=== PATIENT | male | born 1940 | race Caucasian/White ===

== ENCOUNTER 2017-04-11 21:23 | Inpatient (IN) | payer OTHER, MEDICARE ==
[~2017-04-11] VITALS: Ht 172.7 cm; Wt 89.2 kg
[~2017-04-11 21:23] MED LIST: ASPCH81 PO; CIME200T4 PO; CZR50 PO; DMD20 PO; INSDGI SC; LEVO75TA PO; LYR/50 PO; NITR0.4S UT; NVLGI SC; NXM/40 PO; PRAS1TAB6 PO; SILD100T PO
[2017-04-11 21:57] LABS: HEMATOCRIT 43.2 % (42-52); MEAN CELL VOLUME 92.3 fL (80-100); MEAN CORPUSCULAR HEMOGLOBIN 32.5 pg (25-34); MEAN CORPUSCULAR HGB CONC 35.2 g/dl (32-36); MEAN PLATELET VOLUME 11.4 fL (7.4-10.4); PLATELET COUNT 142 K/uL (130-400); RED BLOOD COUNT 4.68 M/uL (4.7-6.1); WHITE BLOOD COUNT 5.92 K/uL (4.8-10.8)
[2017-04-11] MEDS ORDERED: ASPIRIN 81 MG CHEW PO STA (22:04)
[2017-04-11 22:11] LABS: INR 0.9 (0.9-1.1); PROTHROMBIN TIME (PATIENT) 10.1 SECONDS (9.0-12.0)
[2017-04-11] MEDS ORDERED: NITROGLYCERIN OINT 2% 1GM PACKET EXT ONE (22:15)
[2017-04-11 22:17] LABS: ALT/SGPT 36 U/L (12-78); CALCIUM 8.5 mg/dl (8.5-10.1); CHLORIDE 105 mmol/L (98-107); SODIUM 141 mmol/L (136-145)
[2017-04-11 22:18] LABS: ALB/GLOB RATIO 1.2 (0.9-2); ALKALINE PHOSPHATASE 55 U/L (45-117); BLOOD UREA NITROGEN 25 mg/dl (7-18); BUN/CREATININE RATIO 16.6 (10-20); CARBON DIOXIDE 30 mmol/L (21-32); GLUCOSE 207 mg/dl (70-99); POTASSIUM 3.2 mmol/L (3.5-5.1)
[2017-04-11] MEDS ORDERED: INSDGI SC (22:22)
[2017-04-11] MEDS ORDERED: ASPI81CH2 PO (22:22)
[2017-04-11 22:24] LABS: AST/SGOT 31 U/L (15-37)
[2017-04-11] MEDS ORDERED: POTASSIUM CHLORIDE 10 MEQ TABCR PO STA (22:25)
[2017-04-11] MEDS ORDERED: CARV3.122 PO (22:26)
[2017-04-11] MEDS ORDERED: TORS20TA2 PO (22:26)
[2017-04-11] MEDS ORDERED: CINN500C13 PO (22:26)
[2017-04-11] MEDS ORDERED: CHOL100010 PO (22:26)
[2017-04-11] MEDS ORDERED: POTA99TA PO (22:26)
--- NOTE | 2017-04-11 22:27 | DIAGNOSTIC IMAGING REPORT ---
CHEST ONE VIEW PORTABLE CLINICAL HISTORY: 76 years-old Male presenting with A09B Chest Pain. TECHNIQUE: Portable upright AP view of the chest was obtained. COMPARISON: 07/12/2012. FINDINGS: Mildly tortuous descending thoracic aorta. Cardiac silhouette normal in size. Lungs and pleural spaces clear. Degenerative changes of the thoracic spine. Upper abdomen normal. IMPRESSION: 1. No acute cardiopulmonary disease. Electronically signed by: Franki Muñoz M.D. 04/11/2017 10:25 PM Dictated Date/Time: 04/11/2017 10:25 PM
[2017-04-11] MEDS ORDERED: ACETAMINOPHEN 325 MG TAB PO PRN (23:15)
[2017-04-11] MEDS ORDERED: MAGNESIUM HYDROXIDE SUSP 30 ML UDC PO PRN (23:15)
[2017-04-11] MEDS ORDERED: ALUMINUM/MAGNESIUM/SIMETH (MAALOX MAX) 30 ML UDC PO PRN (23:15)
[2017-04-11] MEDS ORDERED: POLYETHYLENE (MIRALAX) 17 GM PACK PO PRN (23:15)
--- NOTE | 2017-04-11 23:26 | EMERGENCY ROOM VISIT NOTE ---
History Report prepared by Abisaiibalberto: Cristina Paiz Under the Supervision of: Dr. Pardeep Lenz M.D. First contact with patient: 21:58 Chief Complaint: CHEST PAIN Stated Complaint: CHEST PAIN Nursing Triage Summary: Triage Notes: Pt complains of chest pain since dinner time. Pt took NTG with some relief. Pt has history of 5 stents. +SOB History of Present Illness The patient is a 76 year old male who presents to the Emergency Room with complaints of persistent chest pain that started around 1800 this evening. He reports he was walking from a restaurant to his car after eating dinner when his pain started. He rates his discomfort as a 1/10 and states Nitroglycerin provided good pain relief. The pain did not radiate anywhere and the patient denies any diaphoresis. He admits to some minimal shortness of breath. The patient has a history of heart disease and has [address] He used to live in the area and followed with [facility], but moved to [place] approximately 2 years ago. He takes daily Aspirin and Effient and has been taking them as prescribed. Pt denies LOC, headache, fevers, chills, diaphoresis, visual changes, neck pain, nausea, vomiting, abdominal pain, back pain, melena, hematochezia, urinary symptoms, numbness, weakness, lymphadenopathy, rash, or other complaints. Source of History: patient Onset: 1800 today Position: chest Symptom Intensity: 1/10 Timing: other (persistent) Modifying Factors (Relieving): other (Nitrogylcerin) Associated Symptoms: + SOB Review of Systems See HPI for pertinent positives and negatives. A total of ten systems were reviewed and were otherwise negative. Past Medical & Surgical Medical Problems: (1) [address] (2) angioplasty (3) Appendectomy (4) Benign hypertension (5) Diabetes mellitus (6) Exertional chest pain (7) Heart disease (8) Kidney stone Social History Smoking Status: Former Smoker Alcohol Use: occasionally Drug Use: none Marital Status: Housing Status: lives with significant other Occupation Status: retired Current/Historical Medications Scheduled Aspirin (Aspirin), 81 MG PO DAILY Carvedilol (Coreg), 3.125 MG PO BID Cholecalciferol (Vitamin D), 5,000 INTER.UNIT PO DAILY Cinnamon (Cinnamon Extract), 500 MG PO DAILY Esomeprazole Magnesium (Nexium), 40 MG PO DAILY Insulin Aspart (Novolog), 8-10 UNITS SC AC Insulin Glargine (Lantus), 22 UNITS SC QPM Levothyroxine Sodium (Synthroid), 75 MCG PO DAILY Losartan Potassium (Cozaar *), 100 MG PO DAILY Nitroglycerin (Nitrostat), 0.4 MG UT PRN Potassium (Potassium), 198 MG PO DAILY Prasugrel Hcl (Effient), 5 MG PO Q2D Pregabalin (Lyrica), 50 MG PO QPM Sildenafil Citrate (Viagra), 100 MG PO PRN Torsemide (Demadex), 20 MG PO DAILY Scheduled PRN Cimetidine (Cimetidine), 400 MG PO Allergies Coded Allergies: SWATI Inhibitors (Verified Adverse Reaction, Intermediate, DRUG SENSITIVITY , 04/11/17) Statins (Verified Adverse Reaction, Intermediate, DRUG SENSITIVITY, ) Garlic (Verified Adverse Reaction, Unknown, MILD, 04/11/17) Onion (Verified Adverse Reaction, Unknown, MILD, 04/11/17) Uncoded Allergies: ISOSORBIDE (Allergy, Unknown, CHOKING, 04/11/17) Physical Exam Vital Signs Date Time Temp Pulse Resp B/P (MAP) Pulse Ox O2 Delivery O2 Flow Rate FiO2 04/11/17 22:31 124/70 04/11/17 22:23 74 22 96 Room Air 04/11/17 22:18 73 20 146/75 96 Room Air 04/11/17 22:01 146/75 04/11/17 21:53 63 18 95 04/11/17 21:49 94 Room Air 04/11/17 21:49 36.7 59 20 146/85 94 Room Air 04/11/17 21:46 59 04/11/17 21:45 57 20 146/85 94 Room Air 04/11/17 21:44 94 Room Air 04/11/17 21:35 146/85 04/11/17 21:28 36.7 72 20 147/77 94 Room Air Physical Exam GENERAL: Awake, alert, well-appearing, in no distress HENT: Normocephalic, atraumatic. Oropharynx unremarkable. EYES: Normal conjunctiva. Sclera non-icteric. NECK: Supple. No nuchal rigidity. FROM. No JVD. RESPIRATORY: Clear to auscultation. CARDIAC: Bradycardic heart rate, normal rhythm. Extremities warm and well perfused. Pulses equal. ABDOMEN: Soft, non-distended. No tenderness to palpation. No rebound or guarding. No masses. RECTAL: Deferred. MUSCULOSKELETAL: Chest examination reveals no tenderness. The back is symmetrical on inspection without obvious abnormality. There is no CVA tenderness to palpation. No joint edema. LOWER EXTREMITIES: Calves are equal size bilaterally and non-tender. Trace lower extremity edema. No discoloration. NEURO: Normal sensorium. No sensory or motor deficits noted. SKIN: No rash or jaundice noted. Medical Decision & Procedures ER Provider Diagnostic Interpretation: Radiology results as stated below per my review and radiologist interpretation: CHEST ONE VIEW PORTABLE CLINICAL HISTORY: 76 years-old Male presenting with A09B Chest Pain. TECHNIQUE: Portable upright AP view of the chest was obtained. COMPARISON: 07/12/2012. FINDINGS: Mildly tortuous descending thoracic aorta. Cardiac silhouette normal in size. Lungs and pleural spaces clear. Degenerative changes of the thoracic spine. Upper abdomen normal. IMPRESSION: 1. No acute cardiopulmonary disease. Electronically signed by: Franki Muñoz M.D. 04/11/2017 10:25 PM Laboratory Results 04/11/17 21:41 04/11/17 21:41 Test 04/11/17 21:41 04/11/17 21:47 04/11/17 21:55 Red Blood Count 4.68 M/uL (4.7-6.1) Mean Corpuscular Volume 92.3 fL (80-100) Mean Corpuscular Hemoglobin 32.5 pg (25-34) Mean Corpuscular Hemoglobin Concent 35.2 g/dl (32-36) RDW Standard Deviation 47.9 fL (36.4-46.3) RDW Coefficient of Variation 14.2 % (11.5-14.5) Mean Platelet Volume 11.4 fL (7.4-10.4) Prothrombin Time 10.1 SECONDS (9.0-12.0) Prothromb Time International Ratio 0.9 (0.9-1.1) Activated Partial Thromboplast Time 25.2 SECONDS (21.0-31.0) Partial Thromboplastin Ratio 1.0 Anion Gap 6.0 mmol/L (3-11) Est Creatinine Clear Calc Drug Dose 45.1 ml/min Estimated GFR () 51.3 Estimated GFR (Non- 44.3 BUN/Creatinine Ratio 16.6 (10-20) Calcium Level 8.5 mg/dl (8.5-10.1) Total Bilirubin 0.5 mg/dl (0.2-1) Aspartate Amino Transf (AST/SGOT) 31 U/L (15-37) Alanine Aminotransferase (ALT/SGPT) 36 U/L (12-78) Alkaline Phosphatase 55 U/L (45-117) Total Creatine Kinase 184 U/L (39-308) Creatine Kinase MB 1.7 ng/ml (0.5-3.6) Total Protein 7.0 gm/dl (6.4-8.2) Albumin 3.8 gm/dl (3.4-5.0) Globulin 3.2 gm/dl (2.5-4.0) Albumin/Globulin Ratio 1.2 (0.9-2) Creatine Kinase MB Ratio (0-3.0) Bedside Troponin I < 0.030 ng/ml (0-0.045) Laboratory results reviewed by me Medications Administered Medications (Trade) Dose Ordered Sig/Huey Route Start Time Stop Time Status Last Admin Dose Admin Aspirin (Aspirin Chew) 324 mg NOW STAT PO 04/11/17 22:04 04/11/17 22:06 DC 04/11/17 22:15 324 MG Nitroglycerin (Nitroglycerin 2% Oint) 0.5 inch NOW ONCE EXT 04/11/17 22:15 04/11/17 22:16 DC 04/11/17 22:15 0.5 INCH Potassium Chloride (Klor-Con M10) 40 meq NOW STAT PO 04/11/17 22:25 04/11/17 22:26 DC 04/11/17 22:35 40 MEQ ECG Indication: chest pain Rate (beats per minute): 49 Rhythm: sinus bradycardia Findings: RBBB, no acute ischemic change, left axis deviation, other (2nd degree AV block) Comparison ECG Date: When compared to previous EKG from 2011, 2nd degree AV block is new ED Course 2200: The patient was evaluated in room A9B. A complete history and physical exam was performed. 2203: Aspirin 324 mg PO. 2214: Nitroglycerin 0.5 inch EXT. 2224: Potassium Chloride 40 meq PO. 2228: I discussed the patients case with Dr. Verdin [facility] Hospitalist. The patient will be further evaluated. 2234: I reevaluated the patient. He is resting comfortably. I discussed my recommendation he remain in the hospital for further evaluation and management and he verbalized complete understanding and agreement. Medical Decision Triage Nursing notes reviewed. The patient's presentation and history were concerning for chest pain. Etiologies such as cardiac ischemia, aortic dissection, pulmonary embolism, pneumonia, pneumothorax, musculoskeletal, infections, gastrointestinal, as well as others were entertained. The patient was evaluated. ECG showed a second-degree type I AV block. No acute ischemic change noted. His CBC, chemistry panel and troponin were unremarkable except for mild hypokalemia. His chest x-ray did not show any acute findings. The patient was given Nitropaste, aspirin, and oral potassium. Patient was reassessed was doing well. Given his extensive cardiac history further evaluation and management in the hospital was felt to be appropriate. Consultation was made with internal medicine. The patient was evaluated in the Emergency Room for further management. Medication Reconcilliation Current Medication List: was personally reviewed by me Blood Pressure Screening Patient's blood pressure: Elevated blood pressure Blood pressure disposition: Referred to PCP Consults Time Called: 2224 Consulting Physician: Dr. Verdin [facility] Hospitalist Returned Call: [phone] I discussed the patients case with Dr. Verdin [facility] Hospitalist. The patient will be further evaluated. Impression Primary Impression: Precordial chest pain Additional Impression: Hypokalemia Scribe Attestation The scribe's documentation has been prepared under my direction and personally reviewed by me in its entirety. I confirm that the note above accurately reflects all work, treatment, procedures, and medical decision making performed by me. Departure Information Dispostion Being Evaluated By Hospitalist Referrals No Doctor, Assigned (PCP) Patient Instructions My [facility] Problem Qualifiers
[2017-04-12] VITALS (12 sets, daily range): BP systolic 125–177; BP diastolic 68–93; PULSE 48–61; TEMP 36.5–37; O2SAT 93–98; Ht 172.7 cm; Wt 89.2 kg
[2017-04-12] MEDS ORDERED: NURSING VERBAL MED ORDER ONE (01:00)
--- NOTE | 2017-04-12 01:30 | History and Physical ---
History & Physical Date & Time of Service: Apr 12, 2017 at 01:02 Chief Complaint: Exertional Chest Pain Primary Care Physician: No Doctor, Assigned History of Present Illness Source: patient 76 y/o M Hx CAD multiple caths and 5 stents, DM, HTN, HPL, hypothyroidism. Pt presents with exertional chest pain which has occurred a few times today during ambulation. The pain is L central, nonradiating. Denies SOB, N/V, lightheadedness or diaphoresis. Initial troponin is WNL. An EKG shows type II heart block which is new in addition to a RBBB which is chronic. The pt is visiting from [place]. He had a cath at [facility] 2009. Additional catheterizations were done in [place] approximately one year ago and during a visit to [place]. Initial labs are notable for a slightly elevated creatinine - we do not have a baseline - and a low potassium. Past Medical/Surgical History 1) DM - uses an insulin pump 2) HTN 3) HPL 4) CAD - cath x 3 - 5 stents 5) Hypothyroidism 6) RBBB Social History Smoking Status: Former Smoker Drug Use: none Marital Status: Occupational Status: retired Immunizations History of Influenza Vaccine: Yes Influenza Vaccine Date: Apr 27, 2010 History of Tetanus Vaccine?: Yes Tetanus Immunization Date: May 09, 2007 History of Pneumococcal: Yes Pneumococcal Date: May 09, 2009 History of Hepatitis B Vaccine: No Multi-Drug Resistant Organisms History of MDRO: No Allergies Coded Allergies: Isosorbide Nitrate (Verified Allergy, Unknown, CHOKING, 04/11/17) SWATI Inhibitors (Verified Adverse Reaction, Intermediate, DRUG SENSITIVITY , 04/11/17) Statins (Verified Adverse Reaction, Intermediate, DRUG SENSITIVITY, ) Garlic (Verified Adverse Reaction, Unknown, MILD, 04/11/17) Onion (Verified Adverse Reaction, Unknown, MILD, 04/11/17) Home Medications Scheduled Aspirin (Aspirin), 81 MG PO DAILY Carvedilol (Coreg), 3.125 MG PO BID Cholecalciferol (Vitamin D), 5,000 INTER.UNIT PO DAILY Cinnamon (Cinnamon Extract), 500 MG PO DAILY Esomeprazole Magnesium (Nexium), 40 MG PO DAILY Insulin Aspart (Novolog), 8-10 UNITS SC AC Insulin Glargine (Lantus), 22 UNITS SC QPM Levothyroxine Sodium (Synthroid), 75 MCG PO DAILY Losartan Potassium (Cozaar *), 100 MG PO DAILY Nitroglycerin (Nitrostat), 0.4 MG UT PRN Potassium (Potassium), 198 MG PO DAILY Prasugrel Hcl (Effient), 5 MG PO Q2D Pregabalin (Lyrica), 50 MG PO QPM Sildenafil Citrate (Viagra), 100 MG PO PRN Torsemide (Demadex), 20 MG PO DAILY Scheduled PRN Cimetidine (Cimetidine), 400 MG PO Review of Systems Constitutional: No fever, No chills, No sweats Eyes: No worsening of vision ENT: No hearing loss, No unusual epistaxis, No nasal symptoms Respiratory: No cough, No sputum, No wheezing Cardiovascular: + chest pain, No orthopnea, No PND Abdomen: No pain, No nausea, No vomiting Musculoskeletal: No joint pain Genitourinary - Male: No hematuria, No dysuria, No urinary frequency Neurologic: No memory loss, No paralysis, No weakness Psychiatric: No depression symptoms Endocrine: No fatigue Hematologic / Lymphatic: No abnormal bleeding/bruising Integumentary: No rash Allergic / Immunologic: No environmental allergies Physical Exam Vital Signs Date Time Temp Pulse Resp B/P (MAP) Pulse Ox O2 Delivery O2 Flow Rate FiO2 04/11/17 23:26 60 20 122/69 94 04/11/17 22:31 124/70 04/11/17 22:23 74 22 96 Room Air 04/11/17 22:18 73 20 146/75 96 Room Air 04/11/17 22:01 146/75 04/11/17 21:53 63 18 95 04/11/17 21:49 94 Room Air 04/11/17 21:49 36.7 59 20 146/85 94 Room Air 04/11/17 21:46 59 04/11/17 21:45 57 20 146/85 94 Room Air 04/11/17 21:44 94 Room Air 04/11/17 21:35 146/85 04/11/17 21:28 36.7 72 20 147/77 94 Room Air General Appearance: WD/WN, no apparent distress Head: normocephalic Eyes: normal inspection ENT: normal ENT inspection, hearing grossly normal, TMs normal Neck: supple, no JVD Respiratory/Chest: chest non-tender, lungs clear, normal breath sounds Cardiovascular: regular rate, rhythm, no edema, no gallop Abdomen/GI: normal bowel sounds, non tender, soft Back: normal inspection, no CVA tenderness Extremities/Musculoskelatal: normal inspection, no calf tenderness, normal capillary refill Neurologic/Psych: solutions manager II-XII nml as tested, no motor/sensory deficits, alert, oriented x 3 Skin: normal color, warm/dry Diagnostics Laboratory Results Results Past 24 Hours Test 04/11/17 21:41 04/11/17 21:47 04/11/17 21:55 04/12/17 00:07 Range/Units White Blood Count 5.92 4.8-10.8 K/uL Red Blood Count 4.68 4.7-6.1 M/uL Hemoglobin 15.2 14.0-18.0 g/dL Hematocrit 43.2 42-52 % Mean Corpuscular Volume 92.3 80-100 fL Mean Corpuscular Hemoglobin 32.5 25-34 pg Mean Corpuscular Hemoglobin Concent 35.2 32-36 g/dl RDW Standard Deviation 47.9 36.4-46.3 fL RDW Coefficient of Variation 14.2 11.5-14.5 % Platelet Count 142 130-400 K/uL Mean Platelet Volume 11.4 7.4-10.4 fL Prothrombin Time 10.1 9.0-12.0 SECONDS Prothromb Time International Ratio 0.9 0.9-1.1 Activated Partial Thromboplast Time 25.2 21.0-31.0 SECONDS Partial Thromboplastin Ratio 1.0 Sodium Level 141 136-145 mmol/L Potassium Level 3.2 3.5-5.1 mmol/L Chloride Level 105 98-107 mmol/L Carbon Dioxide Level 30 21-32 mmol/L Anion Gap 6.0 3-11 mmol/L Blood Urea Nitrogen 25 7-18 mg/dl Creatinine 1.50 0.60-1.40 mg/dl Est Creatinine Clear Calc Drug Dose 45.1 ml/min Estimated GFR () 51.3 Estimated GFR (Non- 44.3 BUN/Creatinine Ratio 16.6 10-20 Calcium Level 8.5 8.5-10.1 mg/dl Total Bilirubin 0.5 0.2-1 mg/dl Aspartate Amino Transf (AST/SGOT) 31 15-37 U/L Alanine Aminotransferase (ALT/SGPT) 36 12-78 U/L Alkaline Phosphatase 55 45-117 U/L Total Creatine Kinase 184 39-308 U/L Creatine Kinase MB 1.7 0.5-3.6 ng/ml Total Protein 7.0 6.4-8.2 gm/dl Albumin 3.8 3.4-5.0 gm/dl Globulin 3.2 2.5-4.0 gm/dl Albumin/Globulin Ratio 1.2 0.9-2 Creatine Kinase MB Ratio 0-3.0 Bedside Troponin I < 0.030 0-0.045 ng/ml Bedside Glucose 169 70-99 mg/dl Test 04/12/17 00:20 Range/Units EKG RBBB, 2/1 heart block are present - rate 50 Impression Assessment and Plan 76 y/o M Hx CAD multiple caths and 5 stents, DM, HTN, HPL, hypothyroidism. Pt presents with exertional chest pain which has occurred a few times today during ambulation. The pain is L central, nonradiating. Denies SOB, N/V, lightheadedness or diaphoresis. Initial troponin is WNL. An EKG shows type II heart block which is new in addition to a RBBB which is chronic. The pt is visiting from [place]. He had a cath at [facility] 2009. Additional catheterizations were done in [place] approximately one year ago and during a visit to [place]. Initial labs are notable for a slightly elevated creatinine - we do not have a baseline - and a low potassium. 1) CP - exertional - monitor on telemetry - cont Effient, asa - listed as having a Statin allergy. Considering his history we will consult cardiology. 2) Heart block - unclear if this correlate with symptoms as rate can be averaged into low 50s - cardiology is consulted - assigned to telemetry - Carvedilol held pending cardio eval 3) DM - can continue to use his pump - supplemented with Glargine. 4) HTN - Cont Losartan, Carvedilol - Torsemide held pending repeat BMP 5) HPL - listed as Statin allergic - AHA diet Full code - Heparin prophylaxis Total time for this admit including review of labs, meds, EKG, records - discussion with pt and ER attending - 38 min Level of Care Telemetry Resuscitation Status FULL RESUSCITATION VTE Prophylaxis VTE Risk Assessment Done? Y/N: Yes Risk Level: Low Given or contraindicated: Unfractionated heparin SQ
[2017-04-12] MEDS ORDERED: POTASSIUM CHLORIDE 10 MEQ TABCR PO ONE (02:00)
[2017-04-12] MEDS ORDERED: MAGNESIUM SULFATE 1GM / D5W 1 GM in PREMIXED IN D5W 100 ML IV ONE (02:00)
[2017-04-12] MEDS ORDERED: NSS + 20MEQ KCL 1000ML 1,000 ML IV SCH (02:00)
[2017-04-12] MEDS: INSULIN GLARGINE SOLOSTAR 100 UNITS/ML 3 ML PEN SC SCH ×2 (02:34→21:16)
[2017-04-12] MEDS ORDERED: IV FLUIDS COMPLETED PRN (05:15)
[2017-04-12] MEDS: LEVOTHYROXINE 75 MCG TAB PO SCH (06:14)
[2017-04-12] MEDS: HEPARIN SOD 5000 UNIT/0.5 ML CARP SQ SCH ×3 (06:15→21:16)
[2017-04-12] MEDS: INSULIN ASPART 100 UNITS/ML 3 ML PEN SC SCH ×4 (06:30→21:00)
[2017-04-12] MEDS ORDERED: NovoLOG INSULIN PUMP SCH (06:30)
[2017-04-12] MEDS: PANTOprazole SOD 40 MG TAB PO SCH (08:25)
[2017-04-12] MEDS: CHOLECALCIFEROL 1000 INTER.UNIT TAB PO SCH (08:25)
[2017-04-12] MEDS: ASPIRIN 81 MG CHEW PO SCH (08:26)
[2017-04-12] MEDS: LOSARTAN POTASSIUM 50 MG TAB PO SCH (08:26)
[2017-04-12] MEDS ORDERED: TORSEMIDE 20 MG TAB PO SCH (09:00)
[2017-04-12] MEDS ORDERED: PRASugrel TAB 10 MG TAB PO SCH (09:00)
[2017-04-12] MEDS ORDERED: CARVEDILOL 3.125 MG TAB PO SCH (09:00)
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
[2017-04-12] MEDS: CARVEDILOL 3.125 MG TAB PO SCH ×2 (13:28→21:14)
[2017-04-12] MEDS ORDERED: AMLODIPINE BESYLATE 5 MG TAB PO SCH (13:30)
[2017-04-12] MEDS: NITROGLYCERIN 0.4 MG SL PER TAB CHARGE SL PRN (15:09)
--- NOTE | 2017-04-12 16:54 | PROGRESS NOTE ---
DATE: 04/12/2017 DATE: 04/12/2017 HISTORY OF PRESENT ILLNESS: Mr. Cordoba is a very pleasant 76-year-old white male with a history of longstanding CAD status post multiple intracoronary stents (5 total stents), type 2 diabetes mellitus, hypertension, dyslipidemia (intolerant to statins and PCSK9 inhibitors, no benefit from Zetia, history of chronic RVBB, history of Wenckebach, and a history of hypothyroidism who presented acutely to [facility] complaining of progressive exertional angina pectoris over the past month which has been coming on with less exertion over that timeframe. He has not had any rest angina pectoris. He is still experiencing some discomfort when he walks to the bathroom from his hospital bed. He is otherwise comfortable. He denies any associated nausea, vomiting, diaphoresis. He has not had any shortness of breath, orthopnea or PND. He denies any palpitations, syncope, or near syncope. Thus far, his cardiac enzymes are negative and his EKG shows no acute changes. He was seen in consultation by Dr. Arizmendi. The patient will be undergoing a cardiac catheterization on Friday to further evaluate coronary anatomy. MEDICATIONS: 1. Lyrica 50 mg q.p.m. 2. Dorzolamide ophthalmic solution 1 drop both eyes b.i.d. 3. Coreg 3.125 mg b.i.d. 4. Norvasc 2.5 mg daily. 5. Aspirin 81 mg a day. 6. Vitamin D 5000 International Units daily. 7. Losartan 100 mg daily. 8. Effient 5 mg p.o. q. 48 hours. 9. Protonix 40 mg daily. 10. Levothyroxine 75 mcg daily 11. NovoLog sliding scale insulin. 12. Heparin 5000 units subcutaneous injection q. 8 hours. 13. Tylenol p.r.n. 14. Maalox Max p.r.n. 15. Milk of Magnesia p.r.n. 16. Zofran p.r.n. 17. Sublingual nitroglycerin p.r.n. 18. Morphine sulfate 2 mg IV q. 30 minutes p.r.n. for pain. 19. MiraLax 17 grams daily as needed. ALLERGIES: 1. SWATI INHIBITORS. 2. GARLIC. 3. ISOSORBIDE MONONITRATE. 4. STAINS. 5. ENVIRONMENTAL ALLERGIES. PHYSICAL EXAMINATION: VITAL SIGNS: Temperature is 36.5 degrees Celsius, pulse 53 and regular, respiratory rate 14 and unlabored, blood pressure is 143/77, SPO2 is 94% on room air. GENERAL: The patient is in no acute distress. He is lying comfortably in his bed in room 283 bed 1. HEAD, EYES, EARS, NOSE, AND THROAT: Unremarkable. NECK: Without JVD. Carotid upstrokes +2 bilaterally. No bruits. CHEST AND LUNGS: Clear to auscultation throughout all lung barboza. No wheezes, rales or rhonchi. CARDIOVASCULAR: S1 and S2 are regular, bradycardia, without obvious murmur, gallop, or rub. No abdominal, aortic or renal bruits. ABDOMEN: Bowel sounds present. No masses, organomegaly or tenderness. EXTREMITIES: Without clubbing, cyanosis or edema. NEUROLOGIC: The patient is awake, alert and oriented. Pleasant and cooperative. Answers questions appropriately. Speech is clear. Normal movement in all 4 extremities. Gait pattern not assessed. LABORATORY DATA: Troponin I less than 0.015 ng/mL x2, PRP and CBC is pending. Current telemetry monitoring reveals normal sinus rhythm/sinus bradycardia. ASSESSMENT: 1. Unstable angina, progressive angina pectoris. 2. Longstanding history of coronary artery disease status post multiple intracoronary stents. 3. Type 2 diabetes mellitus. 4. Hypertension. 5. Dyslipidemia, intolerant of all statins and PCSK9 inhibitors. 6. Chronic right bundle branch block. 7. Hypothyroidism. PLAN: 1. The patient is currently asymptomatic. 2. Continue Coreg 3.125 mg b.i.d. 3. Continue Amlodipine 2.5 mg daily. 4. Continue Aspirin 81 mg daily. 5. Continue Effient 5 mg every 48 hours. 6. Continue Cozaar 100 mg daily. 7. Add topical nitrates in the form of nitropaste 1/2 inch q. 6 hours. 8. Continue subcutaneous heparin 5000 units q. 8 hours. 9. We will make further treatment recommendations pending the outcome of his cardiac catheterization. PA Supervision Note/Attending Addendum: I have interviewed and examined the patient and agree with the documented findings and plan as per JORGE Mcmillan with the following exceptions/additions: Pt having some very mild left precordial CP that came on about 4 hours ago and was resolved with placement of topical nitropaste. Tele reviewed and shows episodes of Mobitz Type 1 and a questionable one time occurrence of Mobitz type II. Otherwise no fevers/cough/cold sxs/SOB/Abd pain/Leg swelling/constipation/ urinary symptoms. Vitals and tele reviewed NAD, pleasant, AAOx3 RRR no mgr CTAB no wcr Abd soft NT ND +BS Ext no edema 76 yo male with a h/o CAD and other issues, here with unstable angina, Main. -continue tele monitoring for more significant AV node blocks -continue cardiac meds as outlined by JORGE Mcmillan -plan for cath on Friday -continue nitropaste but if CP worsens, consider more urgent cath -trend troponin again given recurrence of CP this afternoon MTDD
[2017-04-12] MEDS: NITROGLYCERIN OINT 2% 1GM PACKET EXT SCH ×2 (17:53→23:24)
[2017-04-12] MEDS ORDERED: PREGABALIN 50 MG CAP PO SCH (21:00)
[2017-04-12] MEDS: DORZOLAMIDE HCL 2% OPH SOLN 10 ML BTL OP SCH (21:12)
[2017-04-12] MEDS: PREGABALIN 50 MG CAP PO SCH (21:14)
[2017-04-13] VITALS (16 sets, daily range): BP systolic 121–187; BP diastolic 59–100; PULSE 57–91; TEMP 36.8–37; O2SAT 94–97
[2017-04-13] MEDS: NITROGLYCERIN 0.4 MG SL PER TAB CHARGE SL PRN ×3 (03:45→17:44)
[2017-04-13] MEDS: MoRPHine SULFATE 2 MG/ML CARP IV PRN ×3 (04:17→16:38)
[2017-04-13] MEDS: NITROGLYCERIN OINT 2% 1GM PACKET EXT SCH ×4 (04:18→23:17)
[2017-04-13 05:10] LABS: BLOOD UREA NITROGEN 23 mg/dl (7-18); BUN/CREATININE RATIO 23.7 (10-20); CALCIUM 8.1 mg/dl (8.5-10.1); CARBON DIOXIDE 29 mmol/L (21-32); CHLORIDE 110 mmol/L (98-107); CREATININE 0.98 mg/dl (0.60-1.40); GLUCOSE 120 mg/dl (70-99); SODIUM 142 mmol/L (136-145)
[2017-04-13 05:11] LABS: POTASSIUM 3.8 mmol/L (3.5-5.1)
[2017-04-13] MEDS: HEPARIN SOD 5000 UNIT/0.5 ML CARP SQ SCH ×2 (05:46→13:02)
[2017-04-13] MEDS: LEVOTHYROXINE 75 MCG TAB PO SCH (05:46)
[2017-04-13 05:58] LABS: BASO % 0.4 %; BASO ABS # 0.02 K/uL (0-0.2); COMPLETE YES; EOS % 4.2 %; IG% 0.2 %; LYMPH % 28.5 %; LYMPH ABS # 1.55 K/uL (1.2-3.4); MEAN CELL VOLUME 92.2 fL (80-100); MEAN CORPUSCULAR HEMOGLOBIN 31.1 pg (25-34); MEAN CORPUSCULAR HGB CONC 33.8 g/dl (32-36); MEAN PLATELET VOLUME 11.3 fL (7.4-10.4); MONO % 6.4 %; NEUT % 60.3 %; PLATELET COUNT 121 K/uL (130-400); RED BLOOD COUNT 4.34 M/uL (4.7-6.1); WHITE BLOOD COUNT 5.44 K/uL (4.8-10.8)
[2017-04-13] MEDS: INSULIN ASPART 100 UNITS/ML 3 ML PEN SC SCH ×3 (08:30→21:00)
[2017-04-13] MEDS: CARVEDILOL 3.125 MG TAB PO SCH ×2 (08:31→21:00)
[2017-04-13] MEDS: CHOLECALCIFEROL 1000 INTER.UNIT TAB PO SCH (08:31)
[2017-04-13] MEDS: ASPIRIN 81 MG CHEW PO SCH (08:31)
[2017-04-13] MEDS: LOSARTAN POTASSIUM 50 MG TAB PO SCH (08:32)
[2017-04-13] MEDS: PANTOprazole SOD 40 MG TAB PO SCH (08:32)
[2017-04-13] MEDS: DORZOLAMIDE HCL 2% OPH SOLN 10 ML BTL OP SCH ×2 (08:32→22:01)
[2017-04-13] MEDS: AMLODIPINE BESYLATE 5 MG TAB PO SCH (09:26)
[2017-04-13] MEDS ORDERED: PANTOprazole SOD 40 MG TAB PO SCH (12:00)
--- NOTE | 2017-04-13 12:06 | Cardiology Follow-Up ---
Subjective General Date of Service: Apr 13, 2017. Pt evaluation today including: conversation w/ patient, chart review, lab review, review of studies, conversation w/ systems management consultant History of Present Illness The patient is a 76 year old male Allergies Coded Allergies: Isosorbide Nitrate (Verified Allergy, Unknown, CHOKING, 04/11/17) SWATI Inhibitors (Verified Adverse Reaction, Intermediate, DRUG SENSITIVITY , 04/11/17) Statins (Verified Adverse Reaction, Intermediate, DRUG SENSITIVITY, ) Garlic (Verified Adverse Reaction, Unknown, MILD, 04/11/17) Onion (Verified Adverse Reaction, Unknown, MILD, 04/11/17) Social History Smoking Status: Former Smoker Hx Tobacco Use In Past Year?: No Hx Alcohol Use - Type And Amou: No Hx Substance Use - Type And Am: No Problem List Medical Problems: (1) Hypokalemia Status: Acute (2) Precordial chest pain Status: Acute Review of Systems Respiratory: No shortness of breath, No dyspnea at rest Cardiac: + chest pain, No edema, No palpitations Additional ROS Details: Episode of discomfort last night walking to the bathroom. relieved with SL NTG and MSO4. Troponins negative and EKG unchanged. Mild sx's this am in bed. Seems anxious. Rest complete ROS negative Physical Exam Vital Signs Last Vital Signs Documentation Date Time Temp Pulse Resp B/P (MAP) Pulse Ox O2 Delivery O2 Flow Rate FiO2 04/13/17 08:30 Room Air 04/13/17 07:49 36.8 91 18 138/77 (97) 96 04/12/17 01:18 21 Physical Exam Constitutional: General Apperance: heathly-appearing Level of Distress: NAD Lungs: Respiratory effort: no dyspnea Auscultation: breath sounds normal, no wheezing, no rales/crackles, no rhonchi Cardiovascular: Heart Auscultation: RRR, no murmurs, no rubs, no gallops Abdomen: Bowel Sounds: normal Inspection & Palpation: soft, non-distended, no tenderness, guarding & rebound Extremities: no edema Additional Comments: Psych normal affect Neuro AAOx3 Assessment and Plan Assessment and Plan IMPRESSION: 1. Unstable angina. 2. Wenckebach physiology. 3. Coronary artery disease with upwards of 5 previously placed stents. 4. Hyperlipidemia, intolerant of statins. No benefit from Zetia and intolerant of PCSK9 inhibitors. 5. Chronic kidney disease. 6. Diabetes mellitus type 2. D/W Dr Gambino. As long as no EKG or troponin changes would continue to defer cath until tomorrow unless refractory symptoms. NPO after MN--cath in am with Dr Rojas Reduce Insulin to 11mg tonight while NPO Added Protonix 40mg daily Heparin bolus and Drip NTG past 1/2 inch tolerating without much side effects (problem with imdur in the past) Mso4 ass needed ATIVAN IF NEEDED FOR ANXIETY Continue other meds, norvasc increased as well Laboratory Results Last 24 Hours Test 04/12/17 16:59 04/12/17 21:08 04/12/17 21:30 04/13/17 04:27 Bedside Glucose 103 mg/dl 124 mg/dl Troponin I < 0.015 ng/ml < 0.015 ng/ml Sodium Level 142 mmol/L Potassium Level 3.8 mmol/L Chloride Level 110 mmol/L Carbon Dioxide Level 29 mmol/L Anion Gap 3.0 mmol/L Blood Urea Nitrogen 23 mg/dl Creatinine 0.98 mg/dl Est Creatinine Clear Calc Drug Dose 68.8 ml/min Estimated GFR () 85.8 Estimated GFR (Non- 74.1 BUN/Creatinine Ratio 23.7 Random Glucose 120 mg/dl Calcium Level 8.1 mg/dl Test 04/13/17 05:36 04/13/17 07:18 White Blood Count 5.44 K/uL Red Blood Count 4.34 M/uL Hemoglobin 13.5 g/dL Hematocrit 40.0 % Mean Corpuscular Volume 92.2 fL Mean Corpuscular Hemoglobin 31.1 pg Mean Corpuscular Hemoglobin Concent 33.8 g/dl Platelet Count 121 K/uL Mean Platelet Volume 11.3 fL Neutrophils (%) (Auto) 60.3 % Lymphocytes (%) (Auto) 28.5 % Monocytes (%) (Auto) 6.4 % Eosinophils (%) (Auto) 4.2 % Basophils (%) (Auto) 0.4 % Neutrophils # (Auto) 3.28 K/uL Lymphocytes # (Auto) 1.55 K/uL Monocytes # (Auto) 0.35 K/uL Eosinophils # (Auto) 0.23 K/uL Basophils # (Auto) 0.02 K/uL RDW Standard Deviation 47.6 fL RDW Coefficient of Variation 14.0 % Immature Granulocyte % (Auto) 0.2 % Immature Granulocyte # (Auto) 0.01 K/uL Bedside Glucose 105 mg/dl
[2017-04-13] MEDS ORDERED: HEPARIN IV BOLUS 6,000 UNIT in SYRINGE 0 ML IV ONE (12:30)
[2017-04-13 12:39] LABS: BASO % 0.2 %; BASO ABS # 0.01 K/uL (0-0.2); EOS % 2.3 %; HEMATOCRIT 41.5 % (42-52); IG% 0.3 %; LYMPH % 35.3 %; LYMPH ABS # 2.03 K/uL (1.2-3.4); MEAN CELL VOLUME 92.6 fL (80-100); MEAN CORPUSCULAR HEMOGLOBIN 31.9 pg (25-34); MEAN PLATELET VOLUME 10.7 fL (7.4-10.4); MONO % 8.7 %; NEUT % 53.2 %; PLATELET COUNT 125 K/uL (130-400); RED BLOOD COUNT 4.48 M/uL (4.7-6.1); WHITE BLOOD COUNT 5.75 K/uL (4.8-10.8)
[2017-04-13] MEDS: HEPARIN 25,000 UNIT/500ML D5W 500 ML IV PRN ×2 (12:46→15:16)
[2017-04-13 12:50] LABS: COMPLETE YES; MEAN CORPUSCULAR HGB CONC 34.5 g/dl (32-36)
[2017-04-13 12:51] LABS: PROTHROMBIN TIME (PATIENT) 10.4 SECONDS (9.0-12.0)
[2017-04-13] MEDS ORDERED: NURSING VERBAL MED ORDER ONE ×2 (13:15→13:45)
[2017-04-13] MEDS ORDERED: LORAZEPAM 0.5 MG TAB PO PRN (14:00)
--- NOTE | 2017-04-13 17:18 | Hospitalist Progress Note ---
Hospitalist Progress Note Date of Service Apr 13, 2017. Subjective Pt evaluation today including: conversation w/ patient, conversation w/ family , conversation w/ integration consultant (Cardiology) Pt having intermittent CP today and elevated BPs. Troponin this afternoon bumped up slightly to 0.05. While I was examining him he started to c/o 2/10 pain substernally. Also reports pain on both sides of his jaw but he said that usually gets that when on nitrates (both nitro in hospital settings as well as when he was on Imdur as an outpt). After I sat him up to listen to his lungs, the minimal exertion caused his pain to go to a 6/10. He denies radiation through to the back, no other pain, not SOB, but is feeling very anxious. After receiving morphine, pain was down to a 4/10 after a few minutes. ECG STAT was unchanged from previous All Other Systems: Reviewed and Negative Objective Vital Signs Date Time Temp Pulse Resp B/P (MAP) Pulse Ox O2 Delivery O2 Flow Rate FiO2 04/13/17 16:07 37.0 58 20 172/88 (116) 94 Room Air 04/13/17 13:36 178/88 (118) 04/13/17 12:05 36.9 57 18 175/82 (113) 95 Room Air 04/13/17 12:00 Room Air 04/13/17 08:30 Room Air 04/13/17 07:49 36.8 91 18 138/77 (97) 96 Room Air 04/13/17 04:06 65 155/78 (103) 04/13/17 04:00 Room Air CPAP 04/13/17 03:39 65 187/100 (129) 04/13/17 00:00 Room Air 04/12/17 23:24 50 16 151/74 (99) 93 Room Air 04/12/17 21:01 61 177/86 (116) 04/12/17 20:00 95 Room Air 04/12/17 19:08 36.7 55 24 174/88 (116) 96 Room Air 04/12/17 17:56 168/80 (109) Physical Exam General Appearance: WD/WN, + pertinent finding (appears anxious) Eyes: normal inspection, sclerae normal ENT: hearing grossly normal Neck: trachea midline Respiratory/Chest: lungs clear, normal breath sounds, no respiratory distress, no accessory muscle use Cardiovascular: regular rate, rhythm, no edema, no gallop, no murmur Abdomen: normal bowel sounds, non tender, soft, no organomegaly, no pulsatile mass Extremities: non-tender, normal inspection, no pedal edema, no calf tenderness Neurologic/Psychiatric: alert, oriented x 3 Skin: normal color, warm/dry, no rash Laboratory Results Last 24 Hours Test 04/12/17 16:59 04/12/17 21:08 04/12/17 21:30 04/13/17 04:27 Bedside Glucose 103 mg/dl 124 mg/dl Troponin I < 0.015 ng/ml < 0.015 ng/ml Sodium Level 142 mmol/L Potassium Level 3.8 mmol/L Chloride Level 110 mmol/L Carbon Dioxide Level 29 mmol/L Anion Gap 3.0 mmol/L Blood Urea Nitrogen 23 mg/dl Creatinine 0.98 mg/dl Est Creatinine Clear Calc Drug Dose 68.8 ml/min Estimated GFR () 85.8 Estimated GFR (Non- 74.1 BUN/Creatinine Ratio 23.7 Random Glucose 120 mg/dl Calcium Level 8.1 mg/dl Test 04/13/17 05:36 04/13/17 07:18 04/13/17 11:56 04/13/17 12:23 White Blood Count 5.44 K/uL 5.75 K/uL Red Blood Count 4.34 M/uL 4.48 M/uL Hemoglobin 13.5 g/dL 14.3 g/dL Hematocrit 40.0 % 41.5 % Mean Corpuscular Volume 92.2 fL 92.6 fL Mean Corpuscular Hemoglobin 31.1 pg 31.9 pg Mean Corpuscular Hemoglobin Concent 33.8 g/dl 34.5 g/dl Platelet Count 121 K/uL 125 K/uL Mean Platelet Volume 11.3 fL 10.7 fL Neutrophils (%) (Auto) 60.3 % 53.2 % Lymphocytes (%) (Auto) 28.5 % 35.3 % Monocytes (%) (Auto) 6.4 % 8.7 % Eosinophils (%) (Auto) 4.2 % 2.3 % Basophils (%) (Auto) 0.4 % 0.2 % Neutrophils # (Auto) 3.28 K/uL 3.06 K/uL Lymphocytes # (Auto) 1.55 K/uL 2.03 K/uL Monocytes # (Auto) 0.35 K/uL 0.50 K/uL Eosinophils # (Auto) 0.23 K/uL 0.13 K/uL Basophils # (Auto) 0.02 K/uL 0.01 K/uL RDW Standard Deviation 47.6 fL 47.5 fL RDW Coefficient of Variation 14.0 % 14.0 % Immature Granulocyte % (Auto) 0.2 % 0.3 % Immature Granulocyte # (Auto) 0.01 K/uL 0.02 K/uL Bedside Glucose 105 mg/dl 95 mg/dl Prothrombin Time 10.4 SECONDS Prothromb Time International Ratio 1.0 Activated Partial Thromboplast Time 26.4 SECONDS Partial Thromboplastin Ratio 1.0 Test 04/13/17 13:46 Troponin I 0.051 ng/ml Assessment and Plan Pt is a 76 yo male with a h/o CAD status post multiple intracoronary stents (5 total stents), type 2 diabetes mellitus, hypertension, dyslipidemia (intolerant to statins and PCSK9 inhibitors, no benefit from Zetia), history of chronic RBBB, and hypothyroidism who p/w progressive exertional typical angina over the past month which has been coming on with less exertion over that timeframe. His initial troponin was negative in ER, and EKG shows Wenckebach heart block which is new in addition to a RBBB which is chronic. The pt is visiting from [place] after [place] from [place]. He had a cath at [facility] 2009. Additional catheterizations were done in [place] approximately one year ago and during a visit to [place]. Initial labs are notable for a slightly elevated creatinine - we do not have a baseline - and a low potassium. 1) CAD s/p previous stents x 5, Unstable angina, dyslipidemia- exertional and now at rest during the day today waxing and waning, worse even with sitting up in bed. ECGs without ischemic changes. Tropon was negative x 4, now elevated at 0.05. Was started on heparin gtt earlier today by Cardiology. - monitor on telemetry given heart block - cont Effient q48h but may need to make daily if has repeat stent placed, continue asa - statin allergy, PCSK9 intolerance-no antilipid agent to be given at this time -continue Coreg for beta blockade and HTN -remains on Nitropaste -morphine prn pain -Consult cardiology greatly appreciated -given persistent CP now at rest and elevated troponin--> plan for micro lab analyst urgently today -trend troponin -check ECHO 2) 2nd degree Heart block -Main on tele -Cardiology consult appreciated -continue tele monitoring -no indication for pacemaker 3) DMII - is on Lantus and Novolog at home -continue basal bolus -check A1C 4) HTN -uncontrolled here somewhat in part due to anxiety over his CP - Cont Losartan, Carvedilol -added amlodipine here -ativan for anxiety which may be driving up BP - Torsemide held in prep for cath and due to elevated research epidemiologist initially 5) LYNDSEY- research epidemiologist 1.5 on admission, now down to 0.98 after IVF hydration -follow renal function, unsure what baseline research epidemiologist is Full code - Heparin gtt
[2017-04-13] MEDS ORDERED: NiCARDipine HCL INJ 2.5 MG/ML 10 ML AMP ONE (17:33)
[2017-04-13] MEDS ORDERED: HEPARIN SOD (PORCINE) 1000 UNIT/ML 10 ML VIAL ONE (17:34)
[2017-04-13] MEDS ORDERED: NITROGLYCERIN/D5W 100MCG/ML 20ML SYR ONE (17:34)
[2017-04-13] MEDS ORDERED: FENTANYL CITRATE INJ 50 MCG/1 ML 2 ML VIAL ONE (17:34)
[2017-04-13] MEDS ORDERED: MIDAZOLAM HCL 1 MG/ML 2ML VIAL ONE ×3 (17:34→19:24)
[2017-04-13] MEDS: ONDANSETRON INJ 2 MG/ML 2 ML VIAL IV PRN ×2 (17:44→19:16)
--- NOTE | 2017-04-13 18:21 | Procedure Note ---
Pre-Mod Sedation Assessment General Date of Moderate Sedation: Apr 13, 2017. Vital Signs: Vital Signs Past 12 Hours Date Time Temp Pulse Resp B/P (MAP) Pulse Ox O2 Delivery O2 Flow Rate FiO2 04/13/17 16:07 37.0 58 20 172/88 (116) 94 Room Air 04/13/17 16:00 95 Room Air 04/13/17 13:36 178/88 (118) 04/13/17 12:05 36.9 57 18 175/82 (113) 95 Room Air 04/13/17 12:00 Room Air 04/13/17 08:30 Room Air 04/13/17 07:49 36.8 91 18 138/77 (97) 96 Room Air Review Cardiovascular: regular rate, rhythm, no edema, no gallop, no JVD, no murmur, normal peripheral pulses Abdomen: non tender, soft Lungs: lungs clear Pre-Sedation Airway Assessment Oral Cavity: WNL Able to Visualize Vocal Cords: No Short Thick Neck: No Hx of Sleep Apnea: No Smoking Status: Former Smoker ASA Classification: Class III Procedure Planning Contraindications-for Mod Sed: None Yes Notes The planned sedation has been discussed with the patient and consent obtained. I have identified the patient, determined the appropriateness of sedation and have assessed the patient immediately prior to the procedure. All medicine(s) and interventions are by my order.
[2017-04-13] MEDS ORDERED: NITROGLYCERIN/D5W 100 MCG/ML BTL ONE (19:22)
--- NOTE | 2017-04-13 19:37 | [facility] Post Operative Brief Note ---
Preliminary Procedure Note Procedure Date Apr 13, 2017. Pre-Procedure Diagnosis Acute Coronary Syndrome AUC Score 9 Post-Procedure Diagnosis Severe CAD, Normal LV Systolic Function, Elevated Intracardiac Pressures Procedure(s) Performed Coronary Angiography, Left Heart Cath Marketing/Sales Person Dr. Gambino Weapons Officer(s) LM [place] Estimated Blood Loss 20 ml Medication(s) Fentanyl, Heparin, Nicardipine, Versed, Lidocaine 1% Zofran Preliminary Findings Indications: Acute coronary syndrome Cath site: 6 FR Slender Ewing sheath right radial artery Hemostasis: Terumo TR band Prelim findings: 3V CAD, normal LV systolic function, elevated LVEDP Plan: IV NTG. Restart IV heparin when hemostasis documented right radial cath site. Benzodiazepine for control of anxiety. Stop prasugrel. Transfer to tertiary center tomorrow for CABG surgery. Complications: none Recommendations CABG Specimens None Fluids (cc crystalloids) 74 Drains none Anesthesia IV versed, fentanyl Procedural Complication(s) None Disposition ICU
[2017-04-13] MEDS ORDERED: SODIUM CHLORIDE 0.9% 1000ML 250 ML IV PRN (19:38)
[2017-04-13] MEDS ORDERED: SODIUM CHLORIDE 0.9% 1000ML 1,000 ML IV SCH (19:38)
[2017-04-13] MEDS ORDERED: NITROGLYCERIN 0.4 MG SL PER TAB CHARGE SL PRN (19:45)
[2017-04-13] MEDS ORDERED: NITROGLYCERIN/D5W 100 MCG/ML 250 ML IV PRN (19:45)
[2017-04-13] MEDS ORDERED: ONDANSETRON INJ 2 MG/ML 2 ML VIAL IV PRN (19:45)
[2017-04-13] MEDS ORDERED: ATROPINE SULFATE 0.1 MG/ML 5ML SYR IV PRN (19:45)
[2017-04-13] MEDS ORDERED: ACETAMINOPHEN 325 MG TAB PO PRN (19:45)
--- NOTE | 2017-04-13 19:48 | Procedure Note ---
Post-Mod Sedation Assessment General Date of Moderate Sedation Apr 13, 2017. Vital Signs: Vital Signs Past 12 Hours Date Time Temp Pulse Resp B/P (MAP) Pulse Ox O2 Delivery O2 Flow Rate FiO2 04/13/17 19:15 60 16 150/72 (98) 98 Room Air 04/13/17 19:00 62 16 157/75 (102) 98 Room Air 04/13/17 17:50 69 157/80 (105) 04/13/17 16:07 37.0 58 20 172/88 (116) 94 Room Air 04/13/17 16:00 95 Room Air 04/13/17 13:36 178/88 (118) 04/13/17 12:05 36.9 57 18 175/82 (113) 95 Room Air 04/13/17 12:00 Room Air 04/13/17 08:30 Room Air 04/13/17 07:49 36.8 91 18 138/77 (97) 96 Room Air Review - Discharge Criteria Vital Signs Stable: Yes Alert/Oriented/Conversant: Yes Returned to Baseline Mental St: Yes Nausea Absent/Minimal: No (c/o nausea) Pain/Discomfort/Absent/Minimal: Yes Normal/Baseline Respirations: Yes Active Bleeding?: No Pt Received D/C Instructions: N/A Prescriptions Given: None Specific Proced. D/C Criteria Distal Pulses Present (Cardiac: Yes Groin site assessed-Card Cath: N/A Voided Prior To Discharge: N/A Discharged Patients Adult Escort/Transportation: N/A
[2017-04-13] MEDS ORDERED: ONDANSETRON INJ 8 MG in DEXTROSE 5% 50ML 50 ML IV PRN (20:15)
[2017-04-13] MEDS ORDERED: FUROSEMIDE INJ 20 MG in SYRINGE 0 ML IV ONE (20:30)
--- NOTE | 2017-04-13 20:46 | Cardiac Catheterization ---
Procedure Note Procedure Date Apr 13, 2017. Pre-Procedure Diagnosis Acute Coronary Syndrome, Angina, CAD AUC Score 9 Post-Procedure Diagnosis Severe CAD, Decreased LV Systolic Function, Elevated Intracardiac Pressures Procedure(s) Performed Coronary Angiography, Left Heart Cath Licensing Representative Dr. Gambino Software Quality Assurance Analyst(s) LM [place]ais Estimated Blood Loss 20 ml Medication(s) Fentanyl, Heparin, Nicardipine, Nitroglycerin, Versed, Lidocaine 1% Zofran Summary of Findings Indications: Acute coronary syndrome. Longstanding history of coronary artery disease. Remote history of proximal LAD stent 1997. Details unavailable. Status post deployment of two 3 mm diameter Promus drug-eluting stents mid RCA April 2010. ( performed at [facility]). Subsequent percutaneous coronary interventions performed in both [place] and [place]. Details unavailable. The patient lives in [place]. He is visiting [place]. He was admitted with 1 month history of progressively worsening exertionally precipitated anginal symptoms. Following admission recurrent episodes of rest angina. Electrocardiogram without any diagnostic ischemic or infarct changes. Troponin I minimally elevated. Second-degree atrioventricular block noted during the admission. Because of his history of coronary artery disease and unstable anginal symptoms cardiac catheterization was indicated. Cath site: 6 FR Slender Clutier sheath right radial artery. Catheters: 5 Peruvian brachial 3.5 and 6 Peruvian pigtail catheters. Hemostasis: Terumo TR band Findings: Fluoroscopy revealed coronary calcifications. Stents noted in RCA, lad, and left circumflex. Right dominant circulation. Large caliber left main giving rise to medium caliber left anterior descending left circumflex coronary arteries. Left main also gave rise to a small caliber ramus intermedius coronary artery. 30% ostial and 20% distal left main stenoses. Proximal LAD stent. Diffuse end stent restenosis of 50-70% then followed by focal 90% stenosis followed by a 70% stenosis. Mid LAD with 50-70% stenosis. Diffuse atherosclerotic disease in the mid and distal LAD. Distal LAD with 10-30% luminal diameter narrowing. The distal LAD terminated at the apex of the heart as a small caliber vessel. Ramus with 70% proximal stenosis. Left circumflex with 70% proximal stenosis. The mid circumflex gave rise to a long medium caliber marginal artery. The marginal had an 80% proximal stenosis. Mid segment of marginal with diffuse atherosclerotic disease with 30-40% luminal diameter narrowing. The mid circumflex appeared to be totally occluded following the origin of the marginal. Collateral flow was present from the RCA conus branch to the distal left circumflex. The right coronary was a medium caliber vessel. Ostial 70% stenosis. Proximal 20% stenosis. Mid segment with stents. In stent restenosis of up to 50%. 30% distal RCA stenosis. The distal RCA gave rise to a small caliber posterior descending artery which had an ostial 30% stenosis. It then gave rise to a small caliber posterolateral artery. Proximal 75% stenosis in the posterolateral artery. EPL gave rise to 2 small caliber branches. The superior branch had a 75% proximal stenosis following the bifurcation. The inferior branch had no significant obstructive disease. Left ventricular angiography performed from the 30 degree right anterior oblique projection with a hand injection of contrast dye revealed the diaphragmatic, posterobasal, and anterolateral segments to be hypokinetic. The apex and anterobasal segments contracted normally. Estimated LV ejection fraction 50%. No mitral regurgitation. Plan: IV NTG to help decrease left ventricular end-diastolic pressure. Restart IV heparin when hemostasis documented right radial cath site. Benzodiazepine for control of anxiety. Stop prasugrel. Continue aspirin. Continue losartan and carvedilol. Transfer to tertiary center. The patient has 3 vessel coronary artery disease. He is diabetic. Will transfer him to the [facility] for consideration of undergoing CABG surgery. Complications: none Hemodynamics Rest Ao: 132/63/92 mm Hg Final Ao: 159/73/108 mm Hg LV: 150/30 mm Hg Recommendations CABG Specimens None Radiation Exposure (mGy) 2878 Contrast (mls) 160 ml Fluids (cc crystalloids) 74 Drains none Anesthesia IV Versed,fentanyl. Lidocaine 1% local Procedural Complication(s) None Disposition ICU ACC Data Cardiac Status Clinical evaluation leading to the procedure CAD Presntation: Unstable angina Anginal Classification: CCS IV Heart Failure: No Cardiogenic Shock w/in 24Hrs: No Cardiac Arrest w/in 24Hrs: No Imaging studies past 6 months: Yes Stress studies past 6 months: No Standard Exercise Stress Test: No Stress Echocardiogram: No Stress Testing w/SPECT MPI: No Cardiac CTA: No Coronary Anatomy Dominant: Right Left Main (% Stenosis): Ostial (30), Distal (20) LAD (% Stenosis): Proximal (Diffuse ISR 50-70% followed by 90% ), Mid (50-70) , Distal (Diffuse 10-30) D1 (% Stenosis): Normal D2 (% Stenosis): Normal Circumflex (% Stenosis): Proximal (70), Mid (100) OM1 (% Stenosis): Proximal (80), Mid (Diffuse 30-40) RCA (% Stenosis): Ostial (70), Proximal (20), Mid (ISR 50), Distal (30) R PDA (% Stenosis): Ostial (30) R PL1 (% Stenosis): Proximal (75) R PL2 (% Stenosis): Mid (75) Ramus (% Stenosis): Proximal (70) Left Ventricular Angiography EF (%): 50 Wall Motion: Inferior (Hypokinetic), Apical (Hypokinetic), Anterior ( Hypokinetic) Mitral Regurgitation: None Diagnostic Physician's Name: Ryan Gambino M.D. Status: Urgent Closure Device Percutaneous Entry Location: Radial Closure Device: Radial Band Recommendations: CABG
[2017-04-13] MEDS ORDERED: INSULIN GLARGINE SOLOSTAR 100 UNITS/ML 3 ML PEN SC SCH ×2 (21:00)
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
[2017-04-13] MEDS ORDERED: METOCLOPRAMIDE HCL INJ 20 MG in SODIUM CHLORIDE 0.9% 50ML 50 ML IV PRN (21:30)
[2017-04-13 21:46] LABS: PARTIAL THROMBOPLASTIN RATIO 3.1
[2017-04-13] MEDS: PREGABALIN 50 MG CAP PO SCH (22:13)
[2017-04-14] VITALS (33 sets, daily range): BP systolic 104–145; BP diastolic 49–70; PULSE 55–72; TEMP 36.6–37.5; O2SAT 92–98
[2017-04-14] MEDS: HEPARIN 25,000 UNIT/500ML D5W 500 ML IV PRN (02:43)
[2017-04-14 05:48] LABS: BASO % 0.1 %; BASO ABS # 0.01 K/uL (0-0.2); COMPLETE YES; EOS % 1.3 %; HEMATOCRIT 39.7 % (42-52); IG% 0.3 %; LYMPH % 29.6 %; LYMPH ABS # 2.09 K/uL (1.2-3.4); MEAN CELL VOLUME 91.9 fL (80-100); MEAN CORPUSCULAR HGB CONC 33.8 g/dl (32-36); MONO % 9.6 %; NEUT % 59.1 %; PLATELET COUNT 122 K/uL (130-400); RED BLOOD COUNT 4.32 M/uL (4.7-6.1); WHITE BLOOD COUNT 7.07 K/uL (4.8-10.8)
[2017-04-14 05:59] LABS: PARTIAL THROMBOPLASTIN RATIO 1.7
[2017-04-14 06:31] LABS: BUN/CREATININE RATIO 19.9 (10-20); CALCIUM 8.1 mg/dl (8.5-10.1); CREATININE 0.77 mg/dl (0.60-1.40); MAGNESIUM 1.7 mg/dl (1.8-2.4); PHOSPHORUS 3.7 mg/dl (2.5-4.9)
[2017-04-14 06:44] LABS: ESTIMATED AVERAGE GLUCOSE 143 mg/dl; HA1C FLAG Normal (Normal)
[2017-04-14] MEDS ORDERED: PERFLUTREN LIPID MICROSPHERE (DEFINITY) IV ONE (06:49)
[2017-04-14] MEDS: LEVOTHYROXINE 75 MCG TAB PO SCH (06:51)
[2017-04-14] MEDS: SODIUM CHLORIDE 0.9% 1000ML 1,000 ML IV SCH ×2 (06:52→11:29)
[2017-04-14] MEDS: NITROGLYCERIN OINT 2% 1GM PACKET EXT SCH ×2 (07:26→10:43)
[2017-04-14] MEDS: INSULIN ASPART 100 UNITS/ML 3 ML PEN SC SCH ×2 (07:27→11:00)
[2017-04-14] MEDS: MAGNESIUM SULFATE 1GM / D5W 1 GM in PREMIXED IN D5W 100 ML IV SCH ×2 (08:26→09:02)
[2017-04-14] MEDS: AMLODIPINE BESYLATE 5 MG TAB PO SCH (08:27)
[2017-04-14] MEDS: PANTOprazole SOD 40 MG TAB PO SCH (08:27)
[2017-04-14] MEDS: LOSARTAN POTASSIUM 50 MG TAB PO SCH (08:27)
[2017-04-14] MEDS: CARVEDILOL 3.125 MG TAB PO SCH (08:28)
[2017-04-14] MEDS: ASPIRIN 81 MG CHEW PO SCH (08:28)
[2017-04-14] MEDS: DORZOLAMIDE HCL 2% OPH SOLN 10 ML BTL OP SCH (08:28)
[2017-04-14] MEDS: CHOLECALCIFEROL 1000 INTER.UNIT TAB PO SCH (08:28)
[2017-04-14 09:01] LABS: PARTIAL THROMBOPLASTIN RATIO 2.1
--- NOTE | 2017-04-14 09:22 | Critical Care Progress Note ---
Critical Care Progress Note Date of Service Apr 14, 2017. Attending Dr. Knowles Subjective the pt is asymptomatic this am. no chest pain or sob, no dizziness or near syncopal episode. minimal nausia , resolved, no change in BM or UH. Objective no events over night, remains on heparin and nitro drip, no episodes of significant bradycardia. EKG changes noted with RBBB and inverted T wave as before. Current SOFA Score SOFA Score Response (Comments) Value PaO2/FiO2 (mmHg) < 400 1 SaO2 / FIO2 221 - 301 1 Platelets (x10) > 150 0 Bilirubin (mg/dL) < 1.2 0 Esther Coma Score 15 0 Level of Hypotension No Hypotension 0 Creatinine (mg/dL) < 1.2 0 Total 2 Previous SOFA Scores 2 Assessment & Plan 1- NSTEMI, s/p PCI with 3 vessel disease. 2- episodes of bradycardia , resolved. 3- hx of HTn and HLP. 4- diabetes type II. Plan: 1- continue heparin and nitro drip. 2- b blockers, ASA, statin. 3- Glucose control. 4- DVT prophylaxed by heparin drip. 5- awaiting bed availability at [facility] for transfer for eval for CABG. 6- discussed with the pt, the staff and Dr. Gambino. appreciate all inputs. 7- full code. time spent with the pt was 35 min. YUHAAVIATAM II Score Date Score Was Generated: Apr 14, 2017 Consults & Procedures Consultants: cardiology and critical care. Procedures: PCI on 04/11 Data Medications: Current Inpatient Medications Medications (Trade) Dose Ordered Sig/Huey Route Start Time Stop Time Status Last Admin Dose Admin Aspirin (Aspirin Chew) 81 mg DAILY PO 04/12/17 09:00 05/12/17 08:59 04/14/17 08:28 81 MG Cholecalciferol (Vitamin D Tab) 5,000 inter.unit DAILY PO 04/12/17 09:00 05/12/17 08:59 04/14/17 08:28 5,000 INTER.UNIT Levothyroxine Sodium (Synthroid Tab) 75 mcg DAILYBB PO 04/12/17 06:30 05/12/17 06:29 04/14/17 06:51 75 MCG Losartan Potassium (coZAAR TAB) 100 mg DAILY PO 04/12/17 09:00 05/12/17 08:59 04/14/17 08:27 100 MG Pregabalin (Lyrica Cap) 50 mg QPM PO 04/12/17 21:00 05/12/17 20:59 04/13/17 22:13 50 MG Pantoprazole Sodium (Protonix Tab) 40 mg DAILY PO 04/12/17 09:00 05/12/17 08:59 04/14/17 08:27 40 MG Al Hydrox/Mg Hydrox/Simethicone (Maalox Max Susp) 15 ml Q4H PRN PO 04/11/17 23:15 05/11/17 23:14 Magnesium Hydroxide (Milk Of Magnesia Susp) 30 ml Q12H PRN PO 04/11/17 23:15 05/11/17 23:14 Morphine Sulfate (MoRPHine SULFATE INJ) 2 mg Q30M PRN IV 04/11/17 23:15 04/25/17 23:14 04/13/17 16:38 2 MG Polyethylene (Miralax Powder Packet) 17 gm DAILY PRN PO 04/11/17 23:15 05/11/17 23:14 Insulin Aspart (novoLOG ASPART) SLIDING SCALE ACHS SC 04/12/17 06:30 05/12/17 06:29 Miscellaneous (Iv Fluids Completed) 1 ea PRN PRN N/A 04/12/17 05:15 04/12/18 05:14 Carvedilol (Coreg Tab) 3.125 mg BID PO 04/12/17 13:30 05/12/17 13:29 04/14/17 08:28 3.125 MG Dorzolamide HCl (Trusopt 2% Oph Soln) 1 drops BID OP 04/12/17 21:00 05/12/17 20:59 04/14/17 08:28 1 DROPS Nitroglycerin (Nitroglycerin 2% Oint) 0.5 inch Q6H EXT 04/12/17 18:00 05/12/17 16:14 04/13/17 17:53 0.5 INCH Amlodipine Besylate (Norvasc Tab) 5 mg QAM PO 04/13/17 09:00 05/12/17 13:29 04/14/17 08:27 5 MG Heparin Sodium/ Dextrose 500 ml @ 28 mls/hr [id number] PRN IV 04/13/17 12:30 05/13/17 12:29 Future hold 04/14/17 02:43 28 MLS/HR Lorazepam (Ativan Tab) 0.5 mg Q6H PRN PO 04/13/17 14:00 05/13/17 13:59 04/13/17 14:20 0.5 MG Nitroglycerin (Nitrostat Tab) 0.4 mg Q5M PRN SL 04/13/17 19:45 05/13/17 19:44 Acetaminophen (Tylenol Tab) 650 mg Q4H PRN PO 04/13/17 19:45 05/13/17 19:44 Sodium Chloride 250 ml @ 999 mls/hr Q16M PRN IV 04/13/17 19:38 05/13/17 19:37 Atropine Sulfate (Atropine Sulfate 0.1MG/Ml Inj) 0.6 mg PRN PRN IV 04/13/17 19:45 05/13/17 19:44 Nitroglycerin/ Dextrose 250 ml @ 0 mls/hr Q0M PRN IV 04/13/17 19:45 05/13/17 19:44 Metoclopramide HCl 20 mg/Sodium Chloride 54 ml @ 162 mls/hr Q6H PRN IV 04/13/17 21:30 05/13/17 21:29 04/13/17 22:00 162 MLS/HR Sodium Chloride 1,000 ml @ 100 mls/hr Q10H IV 04/14/17 02:30 05/14/17 02:29 04/14/17 06:52 100 MLS/HR Vital Signs: Date Time Temp Pulse Resp B/P (MAP) Pulse Ox O2 Delivery O2 Flow Rate FiO2 04/14/17 06:01 57 16 114/49 (70) 92 04/14/17 05:46 57 13 132/62 (85) 93 04/14/17 05:31 59 19 132/70 (90) 93 04/14/17 05:16 58 19 136/68 (90) 96 04/14/17 05:01 55 14 127/59 (81) 98 04/14/17 04:46 57 19 127/60 (82) 98 04/14/17 04:31 56 15 118/57 (77) 98 04/14/17 04:16 55 29 134/57 (82) 98 04/14/17 04:01 37.5 58 14 106/49 (68) 97 04/14/17 04:00 Nasal Cannula 2.0 04/14/17 03:46 59 4 126/62 (83) 98 04/14/17 03:31 57 6 119/57 (77) 98 04/14/17 03:16 57 10 121/60 (80) 98 04/14/17 03:01 57 16 133/61 (85) 98 04/14/17 02:46 58 16 128/56 (80) 97 04/14/17 02:31 58 22 115/59 (77) 98 04/14/17 02:16 59 12 126/58 (80) 97 04/14/17 02:01 59 18 121/61 (81) 97 04/14/17 01:46 60 16 133/56 (81) 97 04/14/17 01:31 62 16 104/57 (73) 97 04/14/17 01:16 59 14 125/54 (77) 97 04/14/17 01:01 63 14 125/57 (79) 97 04/14/17 00:46 62 18 121/60 (80) 97 04/14/17 00:31 63 22 145/64 (91) 95 04/14/17 00:16 59 15 123/60 (81) 96 04/14/17 00:01 36.6 59 15 128/62 (84) 96 04/13/17 23:59 Nasal Cannula 2.0 04/13/17 23:46 59 17 121/62 (81) 97 04/13/17 23:31 64 13 137/67 (90) 96 04/13/17 23:16 62 14 130/59 (82) 96 04/13/17 23:01 68 19 129/61 (83) 96 04/13/17 22:46 59 19 127/61 (83) 96 04/13/17 22:31 61 16 131/74 (93) 96 04/13/17 22:16 58 18 132/69 (90) 96 04/13/17 22:01 36.9 60 19 134/67 (89) 95 04/13/17 20:00 Nasal Cannula 2.0 04/13/17 19:15 60 16 150/72 (98) 98 Room Air 04/13/17 19:00 62 16 157/75 (102) 98 Room Air 04/13/17 17:50 69 157/80 (105) 04/13/17 16:07 37.0 58 20 172/88 (116) 94 Room Air 04/13/17 16:00 95 Room Air 04/13/17 13:36 178/88 (118) 04/13/17 12:05 36.9 57 18 175/82 (113) 95 Room Air 04/13/17 12:00 Room Air Laboratory Results: Last 24 Hours Test 04/13/17 11:56 04/13/17 12:23 04/13/17 13:46 04/13/17 16:22 Bedside Glucose 95 mg/dl 101 mg/dl White Blood Count 5.75 K/uL Red Blood Count 4.48 M/uL Hemoglobin 14.3 g/dL Hematocrit 41.5 % Mean Corpuscular Volume 92.6 fL Mean Corpuscular Hemoglobin 31.9 pg Mean Corpuscular Hemoglobin Concent 34.5 g/dl Platelet Count 125 K/uL Mean Platelet Volume 10.7 fL Neutrophils (%) (Auto) 53.2 % Lymphocytes (%) (Auto) 35.3 % Monocytes (%) (Auto) 8.7 % Eosinophils (%) (Auto) 2.3 % Basophils (%) (Auto) 0.2 % Neutrophils # (Auto) 3.06 K/uL Lymphocytes # (Auto) 2.03 K/uL Monocytes # (Auto) 0.50 K/uL Eosinophils # (Auto) 0.13 K/uL Basophils # (Auto) 0.01 K/uL RDW Standard Deviation 47.5 fL RDW Coefficient of Variation 14.0 % Immature Granulocyte % (Auto) 0.3 % Immature Granulocyte # (Auto) 0.02 K/uL Prothrombin Time 10.4 SECONDS Prothromb Time International Ratio 1.0 Activated Partial Thromboplast Time 26.4 SECONDS Partial Thromboplastin Ratio 1.0 Troponin I 0.051 ng/ml Test 04/13/17 18:34 04/13/17 21:10 04/13/17 21:50 04/14/17 05:27 Kaolin Activated Coagulation Time 175 SECONDS Activated Partial Thromboplast Time 79.7 SECONDS 44.6 SECONDS Partial Thromboplastin Ratio 3.1 1.7 Troponin I 0.488 ng/ml 3.450 ng/ml Bedside Glucose 112 mg/dl White Blood Count 7.07 K/uL Red Blood Count 4.32 M/uL Hemoglobin 13.4 g/dL Hematocrit 39.7 % Mean Corpuscular Volume 91.9 fL Mean Corpuscular Hemoglobin 31.0 pg Mean Corpuscular Hemoglobin Concent 33.8 g/dl Platelet Count 122 K/uL Mean Platelet Volume 11.0 fL Neutrophils (%) (Auto) 59.1 % Lymphocytes (%) (Auto) 29.6 % Monocytes (%) (Auto) 9.6 % Eosinophils (%) (Auto) 1.3 % Basophils (%) (Auto) 0.1 % Neutrophils # (Auto) 4.18 K/uL Lymphocytes # (Auto) 2.09 K/uL Monocytes # (Auto) 0.68 K/uL Eosinophils # (Auto) 0.09 K/uL Basophils # (Auto) 0.01 K/uL RDW Standard Deviation 46.8 fL RDW Coefficient of Variation 13.8 % Immature Granulocyte % (Auto) 0.3 % Immature Granulocyte # (Auto) 0.02 K/uL Sodium Level 142 mmol/L Potassium Level 4.0 mmol/L Chloride Level 108 mmol/L Carbon Dioxide Level 26 mmol/L Anion Gap 8.0 mmol/L Blood Urea Nitrogen 15 mg/dl Creatinine 0.77 mg/dl Est Creatinine Clear Calc Drug Dose 87.2 ml/min Estimated GFR () 101.5 Estimated GFR (Non- 87.5 BUN/Creatinine Ratio 19.9 Random Glucose 98 mg/dl Estimated Average Glucose 143 mg/dl Hemoglobin A1c 6.6 % Calcium Level 8.1 mg/dl Phosphorus Level 3.7 mg/dl Magnesium Level 1.7 mg/dl Test 04/14/17 06:34 04/14/17 08:31 Bedside Glucose 90 mg/dl Activated Partial Thromboplast Time 53.4 SECONDS Partial Thromboplastin Ratio 2.1 Magnesium Level 1.9 mg/dl
--- NOTE | 2017-04-14 10:31 | Discharge Summary ---
Discharge Summary Date of Service Apr 14, 2017. Discharge Summary Admission Date: Apr 14, 2017 at 00:58 Discharge Date: Apr 14, 2017 Discharge Disposition: Acute care facility Principal Diagnosis: Unstable angina Problems/Secondary Diagnoses: Severe CAD 2nd degree AV block LYNDSEY - resolved DM type II HTN Immunizations: Have You Had Influenza Vaccine: Yes Influenza Vaccine Date: Apr 27, 2010 History of Tetanus Vaccine?: Yes Tetanus Immunization Date: May 09, 2007 History of Pneumococcal: Yes Pneumococcal Date: May 09, 2009 History of Hepatitis B Vaccine: No Procedures: Cardiac catheterization: severe, triple vessel disease, EF of 50% Consultations: Cardiology Intensive care Discharge Exam patient resting comfortably, no chest pain since yesterday when Nitroglycerin drip initiated. No dyspnea, no nausea. Ate Jello this AM, tolerated well. No peripheral edema. Discussed plans being arranged to transfer to [place], he and his are aware and agree with plan. Review of Systems: Constitutional: No fever, No chills, No sweats, No weight loss, No weakness , No fatigue, No problem reported Eyes: No worsening of vision, No eye pain, No redness, No discharge, No diplopia, No problem reported ENT: No hearing loss, No unusual epistaxis, No nasal symptoms, No sore throat, No tinnitus, No dental problems, No trouble swallowing, No problem reported Respiratory: No cough, No sputum, No wheezing, No shortness of breath, No dyspnea on exertion, No dyspnea at rest, No hemoptysis, No problem reported Cardiovascular: No chest pain, No orthopnea, No PND, No edema, No claudication, No palpitations, No problem reported Abdomen: No pain, No nausea, No vomiting, No diarrhea, No constipation, No GI bleeding, No problem reported Musculoskeletal: No joint pain, No muscle pain, No swelling, No calf pain, No problem reported Genitourinary - Male: No hematuria, No dysuria, No urinary frequency, No urinary urgency Neurologic: No memory loss, No paralysis, No weakness, No numbness/tingling , No vertigo, No balance problems, No problem reported Psychiatric: No depression symptoms, No anhedonism, No anxiety, No insomnia , No substance abuse, No problem reported Endocrine: No fatigue, No excessive thirst, No excessive urination, No problem reported Hematologic / Lymphatic: No abnormal bleeding/bruising, No clotting problems , No swollen lymph nodes, No night sweats, No problem reported Integumentary: No rash, No itch, No new/changing skin lesions, No color change, No bleeding, No problem reported Physical Exam: General Appearance: WD/WN, no apparent distress Eyes: normal inspection, EOMI, sclerae normal ENT: normal ENT inspection, hearing grossly normal, pharynx normal Neck: supple, no adenopathy, no JVD, trachea midline Respiratory/Chest: chest non-tender, lungs clear, normal breath sounds, no respiratory distress, no accessory muscle use Cardiovascular: regular rate, rhythm, no edema, no gallop, no JVD, no murmur , normal peripheral pulses Abdomen / GI: normal bowel sounds, non tender, soft, no organomegaly Extremities: normal inspection, no calf tenderness, normal capillary refill , no pedal edema, normal range of motion, pelvis stable 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 His initial troponin was negative in ER, and EKG shows Wenckebach heart block which is new in addition to a RBBB which is chronic. The [place] is visiting from [place] after [place]. He had a cath at [facility] 2009. Additional catheterizations were done in [place] approximately one year ago and during a visit to [place]. Initial labs are notable for a slightly elevated creatinine - we do not have a baseline - and a low potassium. 1) CAD s/p previous stents x 5, Unstable angina, dyslipidemia- exertional and now at rest during the day today waxing and waning, worse even with sitting up in bed. ECGs without ischemic changes. Tropon was negative x 4, now elevated at 3.45 Was started on heparin gtt 04/13 by Cardiology. - cont Effient q48h but may need to make daily if has repeat stent placed, continue asa - statin allergy, PCSK9 intolerance-no antilipid agent to be given at this time -continue Coreg for beta blockade and HTN -continue nitro drip -morphine prn pain -Consult cardiology greatly appreciated - heart cath on 04/13: multivessel disease, h/o 5 stents, would recommend evaluation for CABG and transfer to [facility], was discussed with cardiothoracic surgery by Dr. 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 Discharge Instructions Please refer to the electronic Patient Visit Report (Discharge Instructions) for additional information. Follow-Up [facility] Additional Copies To Ryan Gambino M.D.
--- NOTE | 2017-04-14 11:46 | ECHOCARDIOGRAM REPORT ---
*NOTICE TO RECEIVING [employer] This information is strictly Confidential and protected under [place] law. [place] law prohibits you from making any further disclosure of this information unless further disclosure is expressly permitted by the written consent of the person to whom it pertains or is authorized by law. A general authorization for the release of medical or other information is not sufficient for this purpose. Hospital accepts no responsibility if the information is made available to any other person, INCLUDING THE PATIENT. Interpretation Summary * Name: ZOHREH PORTILLO Study Date: 04/14/2017 06:22 AM BP: 114/49 mmHg * Patient Location: [facility] HR: 57 * : 1940 (M/d/yyyy) Gender: Male Height: 68 in * Age: 76 yrs Ethnicity: CA Weight: 196 lb * Ordering Physician: Ryan Gambino MD, [facility] * Performed By: Kya Castaneda * * Reason For Study: CHEST PAIN, AMI * BSA: 2.0 m2 * -- Conclusions -- * Left ventricular systolic function is normal. * No regional wall motion abnormalities noted. * Ejection Fraction = 65-70%. * There is borderline concentric left ventricular hypertrophy. * Grade I diastolic dysfunction, (abnormal relaxation pattern). * There is mild mitral regurgitation. Procedure Details * A complete two-dimensional transthoracic echocardiogram was performed (2D, M-mode, Doppler and color flow Doppler). * A contrast injection of Definity was performed to improve assessment of LV function. * Contrast was injected into an intravenous site in the left arm. * One vial of Definity ultrasound contrast was diluted in normal saline to a total volume of 10 ml. A total of '4' ml of solution was administered during imaging. * Lot # [id number] of Definity utilized for procedure. * Expiration date 05/14. * The attending nurse who injected the contrast agent was ERON AREVALO RN. Left Ventricle * The left ventricle is normal in size. * There is borderline concentric left ventricular hypertrophy. * Ejection Fraction = 65-70%. * Left ventricular systolic function is normal. * No regional wall motion abnormalities noted. Right Ventricle * The right ventricle is grossly normal size. * The right ventricular systolic function is normal as assessed by tricuspid annular plane systolic excursion (TAPSE) (normal >1.5 cm). Atria * The left atrial size is normal. * Right atrial size is normal. * There is no evidence of atrial septal defect, but resolution does not allow assessment for a patent foramen ovale. Mitral Valve * The mitral valve anatomy is normal. * There is no mitral valve stenosis. * There is mild mitral regurgitation. Tricuspid Valve * The tricuspid valve is not well visualized, but is grossly normal. * There is no tricuspid stenosis. * Significant tricuspid regurgitation is absent. Aortic Valve * Aortic valve sclerosis moderate, without significant aortic valvular stenosis. * There is no significant aortic regurgitation. Pulmonic Valve * The pulmonary valve is not well seen, but the Doppler examination is normal without significant regurgitation or stenosis. Great Vessels * The aortic root is normal size. * The pulmonary is not well visualized. Pericardium/Pleural * There is no pericardial effusion. Great Vessels * IVC not well seen. Left Ventricular Diastolic Function * Grade I diastolic dysfunction, (abnormal relaxation pattern). MMode 2D Measurements and Calculations IVSd 1.5 cm IVSs 2.1 cm LVIDd 4.6 cm LVIDs 2.8 cm LVPWd 1.1 cm LVPWs 1.9 cm IVS/LVPW 1.4 FS 38.9 % EDV(Teich) 95.5 ml ESV(Teich) 29.2 ml EF(Teich) 69.4 % EDV(cubed) 95.0 ml ESV(cubed) 21.6 ml EF(cubed) 77.2 % % IVS thick 39.7 % % LVPW thick 79.5 % LV mass(C)d 221.9 grams LV mass(C)dI 109.5 grams/m\S\2 LV mass(C)s 242.1 grams LV mass(C)sI 119.5 grams/m\S\2 SV(Teich) 66.3 ml SI(Teich) 32.7 ml/m\S\2 SV(cubed) 73.4 ml SI(cubed) 36.2 ml/m\S\2 ACS 1.2 cm LA dimension 4.6 cm asc Aorta Diam 3.1 cm LVOT diam 2.3 cm LVOT area 4.3 cm\S\2 LVAd ap4 34.9 cm\S\2 LVLd ap4 9.3 cm EDV(MOD-sp4) 105.8 ml EDV(sp4-el) 110.6 ml LVAs ap4 17.7 cm\S\2 LVLs ap4 7.3 cm ESV(MOD-sp4) 34.4 ml ESV(sp4-el) 36.4 ml EF(MOD-sp4) 67.5 % EF(sp4-el) 67.1 % LVAd ap2 33.8 cm\S\2 LVLd ap2 9.5 cm EDV(MOD-sp2) 99.7 ml EDV(sp2-el) 102.2 ml LVAs ap2 17.0 cm\S\2 LVLs ap2 7.3 cm ESV(MOD-sp2) 31.5 ml ESV(sp2-el) 33.3 ml EF(MOD-sp2) 68.5 % EF(sp2-el) 67.4 % LVLd %diff 1.8 % EDV(MOD-bp) 101.5 ml LVLs %diff 0.56 % ESV(MOD-bp) 32.9 ml EF(MOD-bp) 67.6 % SV(MOD-sp4) 71.5 ml SI(MOD-sp4) 35.3 ml/m\S\2 SV(MOD-sp2) 68.3 ml SI(MOD-sp2) 33.7 ml/m\S\2 SV(MOD-bp) 68.6 ml SI(MOD-bp) 33.9 ml/m\S\2 SV(sp4-el) 74.2 ml SI(sp4-el) 36.6 ml/m\S\2 SV(sp2-el) 68.9 ml SI(sp2-el) 34.0 ml/m\S\2 Doppler Measurements and Calculations MV E max eli 76.6 cm/sec MV A max eli 97.1 cm/sec MV E/A 0.79 MV dec time 0.22 sec Ao V2 max 115.6 cm/sec Ao max PG 5.3 mmHg Ao max PG (full) 0.34 mmHg SHARLA(V,A) 4.1 cm\S\2 SHARLA(V,D) 4.1 cm\S\2 LV V1 max PG 5.0 mmHg LV V1 max 111.8 cm/sec MR max eli 275.2 cm/sec MR max PG 30.3 mmHg PA V2 max 63.1 cm/sec PA max PG 1.6 mmHg TR max eli 220.9 cm/sec
[2017-04-14] MEDS: MoRPHine SULFATE 2 MG/ML CARP IV PRN ×2 (12:58→16:17)
--- NOTE | 2017-04-14 14:27 | CARDIOLOGY PROGRESS NOTE ---
DATE: 04/14/2017 The patient was seen by me this morning in his intensive care unit room. His chest tightness and nausea resolved early overnight. Since then, no further complaints of nausea or chest discomfort. No orthopnea or PND overnight. He denies any dyspnea this morning. No palpitations, lightheadedness, or syncope. No abdominal pain. No leg pain. No pain or swelling of his right radial catheterization site. No right arm or right hand pain. No cerebrovascular complaints. No peripheral vascular complaints. No bleeding complaints. PHYSICAL EXAMINATION: VITAL SIGNS: At 8:01 a.m. this morning with oral temperature 36.7, pulse 62, blood pressure 124/61, pulse oximetry room air 94%. NECK: No jugular venous distention. LUNGS: Normal respiratory effort. Clear. No rales or wheezes. HEART: Regular rate and rhythm. S1, S2 normal. No S3 or S4. 2/6 systolic murmur second right intercostal space. No diastolic murmur or rub. ABDOMEN: Soft. Nontender. No palpable masses or organomegaly. EXTREMITIES: No pretibial edema. No calf tenderness. Right radial catheterization site without bleeding. Right radial pulse strongly palpable. No evidence for arterial insufficiency in the right hand. NEUROLOGIC: Alert and oriented x3. Motor grossly intact. PSYCHIATRIC: Affect normal. DATA: Echocardiogram performed this morning. Reviewed by me. Normal overall left ventricular systolic function. Inferoapical hypokinesis. Mild concentric left ventricular hypertrophy. Type 1 left ventricular diastolic dysfunction. Mild mitral regurgitation. Electrocardiogram performed today with sinus bradycardia, first degree AV block, MN interval 344 milliseconds, right bundle branch block, T-wave inversions V2-V6, T inversion aVF. Compared to yesterday's electrocardiograms, T inversions now present in the lateral leads. He also has T inversions in leads 2 and 3. These T-wave inversions are also new. Labs this morning with WBC 7.07, hemoglobin 13.4, hematocrit 39.7, platelet count 122. PTT 53.4. Metabolic profile -- sodium 142, potassium 4.0, chloride 108, carbon dioxide 26, BUN 15, creatinine 0.77, random glucose 98. Magnesium 1.7. Troponin I yesterday afternoon 0.051. Last evening 0.488. This morning 3.450. CURRENT MEDICATIONS: NovoLog sliding scale insulin, carvedilol 3.125 mg b.i.d., Trusopt ophthalmic solution 1 drop b.i.d., aspirin 81 mg daily, vitamin D 5000 units daily, losartan 100 mg daily, pantoprazole 40 mg daily, levothyroxine 75 mcg daily, intravenous nitroglycerin, intravenous heparin by weight based protocol, amlodipine 5 mg daily, pregabalin 50 mg q.p.m., and several p.r.n. medications. ALLERGIES AND ADVERSE DRUG REACTIONS: STATINS, SWATI INHIBITORS, ISOSORBIDE DINITRATE, PCSK9 INHIBITORS. ASSESSMENT: 1. Status post non-ST elevation myocardial infarction. The electrocardiogram has evolved inferolateral ST inversions. This would suggest ischemia in the distribution of the left circumflex marginal. 2. Three-vessel coronary artery disease on cardiac catheterization performed last evening. Severe left circumflex marginal and LAD stenoses. Moderate RCA stenoses. 3. Normal overall left ventricular systolic function on echocardiography today. 4. No ventricular arrhythmias. Monitor history reviewed by me. 5. Atrioventricular block. Marked first degree atrioventricular block. He had evidence of type 1 second-degree atrioventricular block at the time of admission. His carvedilol was held last evening. However, he received it this morning. 6. Blood pressure under good control. 7. No vascular complications at right radial catheterization site. 8. Thrombocytopenia. His platelet count on admission was 142. Platelet count today 122. 9. Stable renal function post cardiac catheterization. RECOMMENDATIONS: 1. Hold further beta tara administration. 2. Continue intravenous nitroglycerin and heparin. 3. His case was discussed with cardiology and cardiothoracic surgery consultants at the [facility]. The patient will be transferred to [facility] when a bed is available. Consideration for coronary artery bypass graft surgery. If it is felt that he does not have good targets for bypass surgery, could then proceed to intervention to the LAD and left circumflex. 4. The patient had been on prasugrel 5 mg every other day. His last dose was 2 days ago. [facility]
[2017-04-14] MEDS ORDERED: ONDANSETRON INJ 2 MG/ML 2 ML VIAL ONE (16:14)
[2017-04-14] MEDS ORDERED: ONDANSETRON INJ 2 MG/ML 2 ML VIAL IV STA (16:16)
== END 2017-04-14 16:52 | disposition short-term general hospital (02) | DRG 287 ==
LOC: C.EDB 21:25 → C.MED 23:07 → ENRESERV 23:15 → C.MSICU 04-13 20:06 → OBSVTOIN 04-14 00:58
PROVIDERS: ADMIT Internal Medicine; ATTEND Internal Medicine
PROC: 4A023N7 Measurement of Cardiac Sampling and Pressure, Left Heart, Percutaneous Approach (ICD-10-PCS; principal; 2017-04-13 18:08)
PROC: B2151ZZ Fluoroscopy of Left Heart using Low Osmolar Contrast (ICD-10-PCS; principal; 2017-04-13 18:08)
PROC: B2111ZZ Fluoroscopy of Multiple Coronary Arteries using Low Osmolar Contrast (ICD-10-PCS; principal; 2017-04-13 18:08)
DX: I25.110 Atherosclerotic heart disease of native coronary artery with unstable angina pectoris (principal); N17.9 Acute kidney failure, unspecified; I44.0 Atrioventricular block, first degree; I44.1 Atrioventricular block, second degree; I45.10 Unspecified right bundle-branch block; R00.1 Bradycardia, unspecified; D69.6 Thrombocytopenia, unspecified; R11.0 Nausea; I12.9 Hypertensive chronic kidney disease with stage 1 through stage 4 chronic kidney disease, or unspecified chronic kidney disease; E11.22 Type 2 diabetes mellitus with diabetic chronic kidney disease; N18.9 Chronic kidney disease, unspecified; E78.5 Hyperlipidemia, unspecified; K21.9 Gastro-esophageal reflux disease without esophagitis; E03.9 Hypothyroidism, unspecified; F41.9 Anxiety disorder, unspecified; Z88.8 Allergy status to other drugs, medicaments and biological substances; Z95.5 Presence of coronary angioplasty implant and graft; Z87.891 Personal history of nicotine dependence; Z79.01 Long term (current) use of anticoagulants; Z79.82 Long term (current) use of aspirin; Z79.4 Long term (current) use of insulin; Z79.899 Other long term (current) drug therapy